=== PATIENT | male | born 1980 | race Two or more races ===

== ENCOUNTER 2020-12-25 16:35 | Inpatient (IN) | payer OTHER ==
[~2020-12-25] VITALS: Ht 175.3 cm; Wt 79.5 kg
[2020-12-25] MEDS ORDERED: SODIUM CHLORIDE 0.9% 1,000 ML IV ONE ×2 (17:15)
[2020-12-25] MEDS ORDERED: LORazepam 2MG/ML-1ML VIAL ONE (17:22)
[2020-12-25] MEDS ORDERED: LORazepam 2MG/ML-1ML VIAL IV ONE (18:00)
[2020-12-25 18:09] LABS: Basophils # (auto) 0.1 10 ^3/uL (0-0.2); Basophils % (auto) 0.6 % (0.0-2.0); Eosinophils # (auto) 0 10 ^3/uL (0-0.8); Hemoglobin 17.1 g/dL (13.5-17.5); Lymphocytes # (auto) 1.4 10 ^3/uL (0.4-5.4); Monocytes # (auto) 1.3 10 ^3/uL (0-1.3); Monocytes % (auto) 11.5 % (0.0-12.0); Nucleated Red Blood Cells % 0.1 %; White Blood Cell 11.6 10^3/uL (4.4-10.8)
[2020-12-25 18:10] LABS: Hematocrit 53.1 % (41.0-53.0); Lymphocytes % (auto) 11.8 % (10.0-50.0); Mean Corpuscular Hemoglobin 32.8 pg (28.0-32.0); Mean Corpuscular Hgb Conc. 32.2 g/dL (32.0-36.0); Mean Corpuscular Volume 101.7 fL (80.0-100.0); Neutrophils # (auto) 8.8 10 ^3/uL (1.6-8.6); Neutrophils % (auto) 76.1 % (37.0-80.0); Red Blood Cells 5.22 10^6/uL (4.5-5.90); Red Cell Distribution Width 16.8 % (11.8-14.3)
[2020-12-25 18:14] LABS: Albumin 4.6 g/dL (3.4-5.0); Anion Gap 28 (5-15); Blood Urea Nitrogen 9 mg/dL (7-18); Calcium 10.8 mg/dL (8.5-10.1); Carbon Dioxide 12 mmol/L (21-32); Chloride 95 mmol/L (98-107); Glucose 138 mg/dL (74-106); Potassium 4.2 mmol/L (3.5-5.1); Sodium 135 mmol/L (136-145)
[2020-12-25 18:17] LABS: Alanine Aminotransferase 157 U/L (16-61); Aspartate Aminotransferase 232 U/L (15-37); BUN/Creatinine Ratio 6.5; GFR African American 72 mL/min; GFR Non-African American 60 mL/min
[2020-12-25 18:19] LABS: Alkaline Phosphatase 123 U/L (45-117); Bilirubin, Total 3.9 mg/dL (0.2-1.0); Total Protein 9.7 g/dL (6.4-8.2)
[2020-12-25 20:29] LABS: Urine Bacteria NONE SEEN /hpf (None Seen); Urine Blood 2+ /uL (Negative); Urine Hyaline Cast FEW /lpf (0 - 2); Urine Specific Gravity 1.015 (1.001-1.035); Urine WBC 1 /hpf (0 - 3)
[2020-12-26] MEDS ORDERED: cefTRIAXone 1GM/50ML D5W 50 ML IV ONE (00:45)
[2020-12-26] MEDS ORDERED: LORazepam 2MG/ML-1ML VIAL IV PRN ×3 (00:45→18:15)
[2020-12-26] MEDS ORDERED: NITROGLYCERIN 0.4 MG SL TAB SL PRN (00:45)
[2020-12-26] MEDS ORDERED: DOCUSATE SOD 100 MG CAP PO PRN (00:45)
[2020-12-26] MEDS ORDERED: MORPHINE SULFATE INJECTION 2 MG/ML SYRG IV PRN (00:45)
[2020-12-26] MEDS ORDERED: ACETAMINOPHEN 325 MG TAB PO PRN (00:45)
[2020-12-26] MEDS ORDERED: HYDROcodone-ACET 5/325MG TAB PO PRN (00:45)
[2020-12-26] MEDS: SODIUM CHLORIDE 0.9% 1,000 ML IV SCH ×2 (01:32→17:25)
[2020-12-26 04:31] LABS: Basophils # (auto) 0.1 10 ^3/uL (0-0.2); Basophils % (auto) 0.6 % (0.0-2.0); Eosinophils # (auto) 0 10 ^3/uL (0-0.8); Eosinophils % (auto) 0.1 % (0.0-7.0); Hematocrit 44.1 % (41.0-53.0); Hemoglobin 15.2 g/dL (13.5-17.5); Lymphocytes # (auto) 0.5 10 ^3/uL (0.4-5.4); Lymphocytes % (auto) 5.1 % (10.0-50.0); Mean Corpuscular Hemoglobin 32.5 pg (28.0-32.0); Mean Corpuscular Hgb Conc. 34.5 g/dL (32.0-36.0); Mean Corpuscular Volume 94.3 fL (80.0-100.0); Monocytes # (auto) 0.9 10 ^3/uL (0-1.3); Monocytes % (auto) 8.5 % (0.0-12.0); Neutrophils % (auto) 85.7 % (37.0-80.0); Red Blood Cells 4.67 10^6/uL (4.5-5.90); White Blood Cell 10.5 10^3/uL (4.4-10.8)
[2020-12-26 04:53] LABS: Potassium 3.1 mmol/L (3.5-5.1)
[2020-12-26 05:00] LABS: Albumin 3.4 g/dL (3.4-5.0); BUN/Creatinine Ratio 9.9; Bilirubin, Total 2.3 mg/dL (0.2-1.0); Calcium 9.3 mg/dL (8.5-10.1); Total Protein 7.2 g/dL (6.4-8.2)
[2020-12-26] MEDS: ZINC SULFATE 220mg CAP or TAB PO SCH (09:59)
[2020-12-26] MEDS: ASCORBIC ACID 500 MG TAB PO SCH ×2 (10:00→20:54)
[2020-12-26] MEDS: ONDANSETRON HCL 4 MG/2 ML VIAL IV PRN (10:00)
[2020-12-26] MEDS ORDERED: MULTIPLE VITAMIN TAB PO SCH (10:00)
[2020-12-26] MEDS: FAMOTIDINE 20 MG TAB PO SCH (10:00)
[2020-12-26] MEDS ORDERED: chlordiazePOXIDE HCL 25 MG CAP PO PRN ×2 (11:45→12:15)
[2020-12-26] MEDS: diphenhdrAMINE HCL 50 MG/1 ML VL IV PRN ×2 (12:13→19:57)
[2020-12-26] MEDS ORDERED: HALOPERIDOL LACTATE 5 MG/ML INJ VIAL ONE (12:39)
[2020-12-26] MEDS ORDERED: HALOPERIDOL LACTATE 5 MG/ML INJ VIAL IM ONE ×2 (12:45→20:15)
[2020-12-26] MEDS ORDERED: LABETALOL HCL 5 MG/ML 4ML SYRINGE IV PRN (13:45)
[2020-12-26] MEDS: POTASSIUM CHL 20MEQ/100ML 100 ML IV SCH ×2 (13:45→15:45)
[2020-12-26 13:54] LABS: Alcohol, Urine < 3.0 mg/dL (0-10); Amphetamine Screen, Urine NEGATIVE (NEGATIVE); Barbiturate Scree,Urine POSITIVE (NEGATIVE); Benzodiazephine Screen, Urine NEGATIVE (NEGATIVE); Cannabinoid Screen, Urine NEGATIVE (NEGATIVE); Cocaine Screen, Urine NEGATIVE (NEGATIVE); Opiate Scree,Urine NEGATIVE (NEGATIVE); Phencyclidine Screen, Urine NEGATIVE (NEGATIVE)
[2020-12-26] MEDS ORDERED: FOLIC ACID 1 MG, MULTIPLE VITAMIN 10 ML, MAGNESIUM SULF SDV 50% 8 MEQ, THIAMINE INJ 100... INJ SCH ×5 (14:00)
[2020-12-26] MEDS: LORazepam 2MG/ML-1ML VIAL IV PRN (16:56)
[2020-12-26] MEDS: chlordiazePOXIDE HCL 25 MG CAP PO SCH ×2 (18:10→23:00)
[2020-12-26] MEDS ORDERED: LORazepam 2MG/ML-1ML VIAL IV ONE (20:15)
[2020-12-27] MEDS: LORazepam 2MG/ML-1ML VIAL IV PRN ×3 (00:53→16:43)
[2020-12-27] MEDS: diphenhdrAMINE HCL 50 MG/1 ML VL IV PRN ×2 (03:26→16:44)
[2020-12-27] MEDS: chlordiazePOXIDE HCL 25 MG CAP PO SCH ×3 (05:24→18:00)
[2020-12-27] MEDS ORDERED: dilTIAZem 25 MG/5 ML VIAL IV ONE (05:30)
[2020-12-27 05:54] LABS: Basophils # (auto) 0.1 10 ^3/uL (0-0.2); Basophils % (auto) 0.5 % (0.0-2.0); Eosinophils # (auto) 0 10 ^3/uL (0-0.8); Eosinophils % (auto) 0.3 % (0.0-7.0); Hematocrit 41.1 % (41.0-53.0); Hemoglobin 14.5 g/dL (13.5-17.5); Lymphocytes # (auto) 0.8 10 ^3/uL (0.4-5.4); Lymphocytes % (auto) 8.6 % (10.0-50.0); Mean Corpuscular Hemoglobin 33.4 pg (28.0-32.0); Mean Corpuscular Hgb Conc. 35.3 g/dL (32.0-36.0); Mean Corpuscular Volume 94.7 fL (80.0-100.0); Monocytes # (auto) 1.1 10 ^3/uL (0-1.3); Monocytes % (auto) 11.2 % (0.0-12.0); Neutrophils # (auto) 7.8 10 ^3/uL (1.6-8.6); Neutrophils % (auto) 79.4 % (37.0-80.0); Red Blood Cells 4.34 10^6/uL (4.5-5.90); Red Cell Distribution Width 15.7 % (11.8-14.3); White Blood Cell 9.8 10^3/uL (4.4-10.8)
[2020-12-27 06:13] LABS: INR 1.12 (0.9-1.15)
[2020-12-27 06:17] LABS: Potassium 3.2 mmol/L (3.5-5.1)
[2020-12-27 06:29] LABS: Albumin 3.3 g/dL (3.4-5.0); BUN/Creatinine Ratio 7.9; Calcium 8.8 mg/dL (8.5-10.1); Magnesium 1.9 mg/dL (1.6-2.6); Total Protein 6.9 g/dL (6.4-8.2)
[2020-12-27] MEDS ORDERED: LORazepam 2MG/ML-1ML VIAL IM ONE (07:45)
[2020-12-27] MEDS ORDERED: diphenhdrAMINE HCL 50 MG/1 ML VL IM ONE (07:45)
[2020-12-27] MEDS ORDERED: HALOPERIDOL LACTATE 5 MG/ML INJ VIAL IM ONE (07:45)
[2020-12-27] MEDS ORDERED: MAGNESIUM SULFATE 1GM/100ML 100 ML IV ONE (08:15)
[2020-12-27] MEDS: POTASSIUM CHL 20MEQ/100ML 100 ML IV SCH ×2 (09:15→11:15)
[2020-12-27] MEDS: ASCORBIC ACID 500 MG TAB PO SCH (10:00)
[2020-12-27] MEDS: FAMOTIDINE 20 MG TAB PO SCH (10:00)
[2020-12-27] MEDS: ZINC SULFATE 220mg CAP or TAB PO SCH (10:00)
[2020-12-27] MEDS: SODIUM CHLORIDE 0.9% 1,000 ML IV SCH (10:05)
[2020-12-27] MEDS: FOLIC ACID 1 MG, MULTIPLE VITAMIN 10 ML, MAGNESIUM SULF SDV 50% 8 MEQ, THIAMINE INJ 100... INJ SCH ×5 (12:00)
[2020-12-27] MEDS: ONDANSETRON HCL 4 MG/2 ML VIAL IV PRN (16:47)
[2020-12-28] MEDS: SODIUM CHLORIDE 0.9% 1,000 ML IV SCH ×2 (00:34→22:25)
[2020-12-28] MEDS ORDERED: LEVE500T32 PO (01:22)
[2020-12-28] MEDS ORDERED: LISI20TA28 PO (01:22)
[2020-12-28] MEDS: ASCORBIC ACID 500 MG TAB PO SCH ×3 (04:00→22:26)
[2020-12-28] MEDS: chlordiazePOXIDE HCL 25 MG CAP PO SCH ×4 (04:31→18:13)
[2020-12-28 05:00] VITALS: BP 125/89
[2020-12-28 05:49] LABS: Potassium 3.3 mmol/L (3.5-5.1)
[2020-12-28 06:07] LABS: Bilirubin, Direct 0.6 mg/dL (0-0.2); Bilirubin, Total 1.2 mg/dL (0.2-1.0); Magnesium 2.1 mg/dL (1.6-2.6); Total Protein 6.6 g/dL (6.4-8.2)
[2020-12-28 10:03] LABS: Hepatitis B Surface Antibody Negative
[2020-12-28] MEDS: ZINC SULFATE 220mg CAP or TAB PO SCH (10:03)
[2020-12-28] MEDS: FAMOTIDINE 20 MG TAB PO SCH (10:03)
[2020-12-28 10:36] LABS: Hepatitis A Total Antibody Positive
[2020-12-28] MEDS: FOLIC ACID 1 MG, MULTIPLE VITAMIN 10 ML, MAGNESIUM SULF SDV 50% 8 MEQ, THIAMINE INJ 100... INJ SCH ×5 (12:17)
[2020-12-28 13:56] LABS: Hepatitis B Core Total AB Negative
[2020-12-28 13:57] LABS: Hepatitis B Surface Antigen Negative (Negative); Hepatitis C Antibody Negative (Negative)
[2020-12-28] MEDS: LORazepam 2MG/ML-1ML VIAL IV PRN (13:58)
[2020-12-28] MEDS ORDERED: CHOLECALCIFEROL (VITD3) 2,000 UNIT CAP/TAB PO ONE (15:00)
[2020-12-28] MEDS ORDERED: POTASSIUM CHL 20MEQ/100ML 100 ML IV SCH (15:00)
[2020-12-28] MEDS ORDERED: POTASSIUM EFFERVESENT TAB 25 MEQ GT ONE (16:15)
[2020-12-28 17:00] VITALS: BP 130/94
[2020-12-28 22:00] VITALS: BP 143/97
[2020-12-29] MEDS: chlordiazePOXIDE HCL 25 MG CAP PO SCH ×3 (00:29→13:17)
[2020-12-29 05:57] LABS: Albumin 2.7 g/dL (3.4-5.0); Bilirubin, Direct 0.5 mg/dL (0-0.2); Bilirubin, Total 1.1 mg/dL (0.2-1.0); Magnesium 2.1 mg/dL (1.6-2.6); Total Protein 6.1 g/dL (6.4-8.2)
[2020-12-29] MEDS ORDERED: POTASSIUM CHL 20 Meq TABLET PO ONE (07:00)
[2020-12-29 09:00] VITALS: BP 127/89
[2020-12-29] MEDS: ASCORBIC ACID 500 MG TAB PO SCH (09:18)
[2020-12-29] MEDS: ZINC SULFATE 220mg CAP or TAB PO SCH (09:18)
[2020-12-29] MEDS: FAMOTIDINE 20 MG TAB PO SCH (09:19)
[2020-12-29] MEDS: SODIUM CHLORIDE 0.9% 1,000 ML IV SCH (09:21)
[2020-12-29] MEDS ORDERED: CHOLECALCIFEROL (VITD3) 2,000 UNIT CAP/TAB PO SCH (10:00)
[2020-12-29] MEDS ORDERED: POTASSIUM EFFERVESENT TAB 25 MEQ PO ONE (11:45)
[2020-12-29] MEDS ORDERED: MULT-351 PO (11:54)
[2020-12-29] MEDS ORDERED: CHOL20007 PO (11:55)
[2020-12-29] MEDS ORDERED: THIA100T5 PO (11:55)
[2020-12-29 12:58] VITALS: BP 151/112
[2020-12-29 14:16] VITALS: BP 127/89
== END 2020-12-29 15:07 | disposition home or self-care (01) | DRG 100 ==
LOC: ER 16:39 → OVERFLOW 12-26 00:40 → WEST WING 12-27 22:35 → TELE-WESTW 12-28 03:06
PROVIDERS: ADMIT Nurse Practitioner Family; ATTEND Internal Medicine
DX: G40.901 Epilepsy, unspecified, not intractable, with status epilepticus (principal); N17.0 Acute kidney failure with tubular necrosis; R65.10 Systemic inflammatory response syndrome (SIRS) of non-infectious origin without acute organ dysfunction; F10.231 Alcohol dependence with withdrawal delirium; D69.59 Other secondary thrombocytopenia; E55.9 Vitamin D deficiency, unspecified; K70.10 Alcoholic hepatitis without ascites; K74.60 Unspecified cirrhosis of liver; Z81.8 Family history of other mental and behavioral disorders; Z20.822 Contact with and (suspected) exposure to COVID-19; E78.00 Pure hypercholesterolemia, unspecified; E78.5 Hyperlipidemia, unspecified; F32.9 Major depressive disorder, single episode, unspecified; Y90.9 Presence of alcohol in blood, level not specified; F41.9 Anxiety disorder, unspecified; E87.6 Hypokalemia; F17.200 Nicotine dependence, unspecified, uncomplicated; I10 Essential (primary) hypertension; R00.0 Tachycardia, unspecified; R73.9 Hyperglycemia, unspecified
CPT/HCPCS: 36415; 36600; 70450; 70551; 71045; 76705; 80053; 80061; 80076; 80307; 81001; 82306; 82542; 82805; 83036; 83735; 84132; 84443; 84484; 85025; 85610; 86704; 86706; 86708; 86803; 87340; 87426; 93005; 95819; 96361; 96365; 96375; 97163; G0378; J0696; J2405; J3480; J7060